=== PATIENT | female | born 2000 | race Caucasian/White ===

== ENCOUNTER 2022-05-31 06:21 | Day surgery (SDC) | payer BC ==
[2022-05-24 12:21] LABS: BASOPHILS % (AUTO) 0.5 % (0.0-5.0); LYMPHOCYTES % (AUTO) 35.3 % (21.0-51.0); MEAN CORPUSCULAR HEMOGLOBIN 29.1 pg (27.0-33.0); MEAN CORPUSCULAR HGB CONC 33.3 g/dL (32.0-36.0); MEAN CORPUSCULAR VOLUME 87.5 fL (79-99); MONOCYTES % (AUTO) 9.8 % (3.0-13.0); NEUTROPHILS % (AUTO) 53.1 % (40.0-77.0); PLATELET COUNT (AUTO) 275 K/uL (130-400); RED BLOOD CELL COUNT(AUTO) 4.57 MIL/uL (4.00-5.50); RED CELL DISTRIBUTION WIDTH 12.3 % (11.0-15.5); WHITE BLOOD COUNT (AUTO) 5.9 K/uL (4.8-10.8)
[2022-05-30 08:18] VITALS: BP 100/63
[2022-05-31] VITALS (17 sets, daily range): BP systolic 91–126; BP diastolic 59–81
[~2022-05-31] VITALS: Ht 162.6 cm; Wt 57.9 kg
[~2022-05-31 06:21] MED LIST: SERT-438 PO
[2022-05-31] MEDS ORDERED: LACTATED RINGERS 1000ML 1,000 ML IV ONE (07:05)
[2022-05-31] MEDS ORDERED: LIDOCAINE PF 100MG/5ML (2%) SYRINGE 5ML ONE (08:35)
[2022-05-31] MEDS ORDERED: PROPOFOL 10 MG/ML 20ML VIAL IV ONE (08:35)
[2022-05-31] MEDS ORDERED: DEXAMETHASONE SOD PHOSPHATE 10MG/ML 1ML VIAL ONE ×2 (08:35→09:03)
[2022-05-31] MEDS ORDERED: MIDAZOLAM HCL 1 MG/ML 2ML VIAL ONE (08:35)
[2022-05-31] MEDS ORDERED: SUCCINYLCHOLINE 200MG/10ML SYR ONE (08:35)
[2022-05-31] MEDS ORDERED: ONDANSETRON 4MG INJ ONE (08:36)
[2022-05-31] MEDS ORDERED: FENTANYL CITRATE PF 50 MCG/1 ML 2ML VIAL ONE (08:36)
[2022-05-31] MEDS ORDERED: KETOROLAC 30MG VIAL (30MG/ML) ONE (08:54)
[2022-05-31] MEDS ORDERED: LIDOCAINE HCL 2% PF 20 ML JEL DISP.SYRIN MM ONE (09:02)
[2022-05-31] MEDS ORDERED: MEPERIDINE-PF 25 MG/ML SYG ONE ×2 (09:35→09:44)
== END 2022-05-31 11:15 | disposition home or self-care (01) ==
LOC: DAH 06:21
PROVIDERS: ATTEND Obstetrics & Gynecology
DX: N93.9 Abnormal uterine and vaginal bleeding, unspecified (principal); N92.0 Excessive and frequent menstruation with regular cycle; F41.9 Anxiety disorder, unspecified; F32.A Depression, unspecified; Z79.899 Other long term (current) drug therapy; Z79.01 Long term (current) use of anticoagulants; Z90.49 Acquired absence of other specified parts of digestive tract; Z82.49 Family history of ischemic heart disease and other diseases of the circulatory system; Z80.41 Family history of malignant neoplasm of ovary
CPT/HCPCS: 84703; 85025; 87426; 36415; 58558; A6260; A4663; J7030; J7120 ×2; A4351; A4355; J3010; J0330; J1100 ×2; J2001; J2250; J2704; J2405; J1885; J2175 ×2; A4215; A4223; A4222; A4221